=== PATIENT | male | born 1995 | race Caucasian/White ===

== ENCOUNTER 2017-02-07 18:17 | Emergency (ER) | payer SELFPAY ==
[~2017-02-07] VITALS: Ht 152.4 cm; Wt 63.5 kg
[~2017-02-07 18:17] MED LIST: 'PARAFON FORTE500 M1 PO; AMOXICILLIN500 MG PO; ANTIBIOTIC O500 U/GM T; CLARITIN-D 12 H1 TAB PO; CLARITIN10 MG PO; CORTISPORIN SUS10 ML OT; HYDROCODONE BIT1 T11 PO; LOMOTIL 0.025 M1 TA1 PO; MEDROL DOSEPAK4 MG PO; MOTRIN600 MG PO; MOTRIN800 MG PO; NAPROSYN500 MG PO; OMNICEF300 MG PO; PREDNICOT20 MG PO; ROBAXIN750 MG PO; SEPTRA DS 800 M1 TAB PO; TESSALON PERLE200 MG PO; TOBREX OPHTH S2.5 ML OPH; ULTRAM50 MG PO; VIBRAMYCIN100 MG PO; ZITHROMAX Z PA250 MG PO; ZITHROMAX Z-PA250 MG PO; ZITHROMAX250 MG PO; ZOFRAN ODT4 MG SL; ZYRTEC10 MG PO
[2017-02-07 18:26] VITALS: BP 116/60
[2017-02-07 19:35] LABS: BASO % 0.3 % (0.0-1.0); EOS # 0.2 10*3/uL (0.0-0.4); EOS % 2.6 % (1.0-4.0); HEMATOCRIT 40.3 % (42.0-52.0); HEMOGLOBIN 14.1 g/dl (14.0-18.0); LYMPH # 1.3 10*3/uL (1.3-4.4); LYMPH % 14.9 % (27.0-41.0); MEAN CORPUSCULAR HGB 32.2 pg (27.0-31.0); MEAN PLATELET VOLUME 11.2 fl (9.6-12.3); MONO # 0.7 10*3/uL (0.1-1.0); MONO % 7.9 % (3.0-9.0); NEUT # 6.4 10*3/uL (2.3-7.9); PLATELET COUNT AUTOMATED 201 10*3/uL (130-400); RED BLOOD COUNT 4.38 10*6/uL (4.50-5.90); RED CELL DISTRI WIDTH 11.7 % (0-14.5); WHITE BLOOD COUNT 8.7 10*3/uL (4.8-10.8)
[2017-02-07 19:51] LABS: ALKALINE PHOSPHATASE 50 U/L (45-117); BILIRUBIN, TOTAL 0.5 mg/dl (0.2-1.0); BUN 11 mg/dl (7-24); CARBON DIOXIDE 27 mmol/L (21-32); CHLORIDE 104 mmol/L (98-107); EST GLOM FILT AFRICAN AMERICAN > 60 ml/min; GLUCOSE 122 mg/dL (65-99); POTASSIUM 3.7 mmol/L (3.5-5.1); SGOT/AST 16 IU/L (3-35); SGPT/ALT 15 U/L (12-78); SODIUM 139 mmol/L (136-145); TOTAL PROTEIN 7.4 gm/dL (6.4-8.2)
[2017-02-07] MEDS ORDERED: ZITHROMAX250 MG PO (19:58)
== END 2017-02-07 20:20 | disposition home or self-care (01) ==
LOC: ED 18:17
PROVIDERS: Nurse Practitioner Family
DX: J02.9 Acute pharyngitis, unspecified (principal)

== ENCOUNTER 2017-02-24 02:48 | Emergency (ER) | payer SELFPAY ==
[2017-02-24 02:54] VITALS: BP 135/44
[2017-02-24] MEDS ORDERED: ACULAR 3ML 3 ML5 ML OPH (03:36)
[2017-02-24] MEDS ORDERED: CIPROFLOXACIN 110 ML OPH (03:36)
== END 2017-02-24 06:01 | disposition home or self-care (01) ==
LOC: ED 02:48
DX: H16.133 Photokeratitis, bilateral (principal)

== ENCOUNTER 2017-10-17 15:25 | Emergency (ER) | payer SELFPAY ==
[~2017-10-17] VITALS: Ht 165.1 cm; Wt 63.5 kg
[~2017-10-17 15:25] MED LIST changes: +ACULAR 3ML 3 ML5 ML OPH; +CIPROFLOXACIN 110 ML OPH
[2017-10-17 15:28] VITALS: BP 122/65
[2017-10-17] MEDS ORDERED: ALBUTEROL2.5 MG/0.5 INH (16:30)
[2017-10-17] MEDS ORDERED: ZITHROMAX250 MG PO (16:30)
[2017-10-17] MEDS ORDERED: PROAIR HFA8.5 GM INH (16:30)
[2017-10-17] MEDS ORDERED: PREDNISONE10 MG PO (16:30)
== END 2017-10-17 16:38 | disposition home or self-care (01) ==
LOC: ED 15:25
DX: H66.93 Otitis media, unspecified, bilateral (principal); J06.9 Acute upper respiratory infection, unspecified; R06.2 Wheezing

== ENCOUNTER 2018-05-11 02:31 | Emergency (ER) | payer SELFPAY ==
[~2018-05-11] VITALS: Ht 165.1 cm; Wt 6.4 kg
[~2018-05-11 02:31] MED LIST changes: +ALBUTEROL2.5 MG/0.5 INH; +FLONASE ALLERG9.9 ML NAS; +PREDNISONE10 MG PO; +PROAIR HFA8.5 GM INH
[2018-05-11 02:32] VITALS: BP 120/63
== END 2018-05-11 03:07 | disposition home or self-care (01) ==
LOC: ED 02:31
DX: S05.01XA Injury of conjunctiva and corneal abrasion without foreign body, right eye, initial encounter (principal); S05.02XA Injury of conjunctiva and corneal abrasion without foreign body, left eye, initial encounter; H16.133 Photokeratitis, bilateral; Z79.899 Other long term (current) drug therapy; W89.8XXA Exposure to other man-made visible and ultraviolet light, initial encounter; Y93.89 Activity, other specified; Y92.69 Other specified industrial and construction area as the place of occurrence of the external cause; Y99.8 Other external cause status

== ENCOUNTER 2018-06-07 23:42 | Emergency (ER) | payer SELFPAY ==
[~2018-06-07] VITALS: Ht 167.6 cm; Wt 59.0 kg
[2018-06-07 23:43] VITALS: BP 110/42
== END 2018-06-08 00:31 | disposition home or self-care (01) ==
LOC: ED 23:42
DX: H16.133 Photokeratitis, bilateral (principal); F17.200 Nicotine dependence, unspecified, uncomplicated

== ENCOUNTER 2018-12-07 23:01 | Emergency (ER) | payer OTHER ==
[~2018-12-07] VITALS: Wt 59.0 kg
[~2018-12-07 23:01] MED LIST changes: +ACULAR 0.5%3 ML OPH; +CEPHALEXIN500 M1 PO
[2018-12-07 23:04] VITALS: BP 100/47
== END 2018-12-08 00:36 | disposition home or self-care (01) ==
LOC: ED 23:01
DX: H16.133 Photokeratitis, bilateral (principal)

== ENCOUNTER 2019-08-27 11:00 | Emergency (ER) | payer SELFPAY ==
[~2019-08-27] VITALS: Ht 165.1 cm; Wt 59.0 kg
[2019-08-27 11:06] VITALS: BP 104/61
[2019-08-27 11:32] LABS: BASO % 0.2 % (0.0-1.0); EOS % 0.1 % (1.0-4.0); HEMATOCRIT 43.8 % (42.0-52.0); HEMOGLOBIN 14.7 g/dl (14.0-18.0); LYMPH # 0.3 10*3/uL (1.3-4.4); LYMPH % 3.5 % (27.0-41.0); MEAN CELL VOLUME 94.4 fl (80.0-94.0); MEAN CORPUSCULAR HGB 31.7 pg (27.0-31.0); MEAN CORPUSCULAR HGB CONC 33.6 g/dl (33.0-37.0); MEAN PLATELET VOLUME 11.4 fl (9.6-12.3); MONO # 0.6 10*3/uL (0.1-1.0); MONO % 7.4 % (3.0-9.0); NEUT # 7.4 10*3/uL (2.3-7.9); NEUT % 88.6 % (47.0-73.0); PLATELET COUNT AUTOMATED 180 10*3/uL (130-400); RED BLOOD COUNT 4.64 10*6/uL (4.50-5.90); RED CELL DISTRI WIDTH 12.2 % (0-14.5); WHITE BLOOD COUNT 8.3 10*3/uL (4.8-10.8)
[2019-08-27 11:47] LABS: ALBUMIN 4.6 gm/dl (3.1-4.5); ALKALINE PHOSPHATASE 57 U/L (45-117); BUN 10 mg/dl (7-24); CHLORIDE 103 mmol/L (98-107); CREATININE 1.31 mg/dL (0.70-1.30); POTASSIUM 3.6 mmol/L (3.5-5.1); SGOT/AST 18 IU/L (3-35); SGPT/ALT 26 U/L (12-78); SODIUM 135 mmol/L (136-145); TOTAL PROTEIN 8.2 gm/dL (6.4-8.2)
[2019-08-27 12:49] LABS: BILIRUBIN NEGATIVE (NEGATIVE); BLOOD NEGATIVE (NEGATIVE); CLARITY SL CLOUDY (CLEAR); COLOR YELLOW (YELLOW); GLUCOSE NEGATIVE (NEGATIVE); KETONE NEGATIVE (NEGATIVE); SPECIFIC GRAVITY 1.015 (1.005-1.030)
[2019-08-27 12:50] LABS: BACTERIA TRACE; EPITHELIAL CELLS 0-2; LEUKO ESTERASE NEGATIVE (NEGATIVE); MUCOUS 1+; NITRITE NEGATIVE (NEGATIVE); UROBILINOGEN 0.2 E.U./dl (0.2-1.0)
[2019-08-27] MEDS ORDERED: ROBITUSSIN DM 101 OZ PO (13:08)
[2019-08-27] MEDS ORDERED: TAMIFLU 75MG CA75 MG PO (13:19)
== END 2019-08-27 13:13 | disposition home or self-care (01) ==
LOC: ED 11:00
PROVIDERS: Nurse Practitioner Family
DX: J10.1 Influenza due to other identified influenza virus with other respiratory manifestations (principal); J45.909 Unspecified asthma, uncomplicated; Z79.2 Long term (current) use of antibiotics; Z79.899 Other long term (current) drug therapy

== ENCOUNTER 2019-11-04 14:36 | Emergency (ER) | payer SELFPAY ==
[~2019-11-04] VITALS: Ht 162.5 cm; Wt 56.7 kg
[~2019-11-04 14:36] MED LIST changes: +ROBITUSSIN DM 101 OZ PO; +TAMIFLU 75MG CA75 MG PO
[2019-11-04 16:12] LABS: BASO # 0.1 10*3/uL (0.0-0.1); BASO % 0.4 % (0.0-1.0); EOS # 0.6 10*3/uL (0.0-0.4); EOS % 3.5 % (1.0-4.0); HEMATOCRIT 44.4 % (42.0-52.0); LYMPH # 2.8 10*3/uL (1.3-4.4); LYMPH % 15.9 % (27.0-41.0); MEAN CELL VOLUME 94.7 fl (80.0-94.0); MEAN CORPUSCULAR HGB 31.6 pg (27.0-31.0); MEAN CORPUSCULAR HGB CONC 33.3 g/dl (33.0-37.0); MEAN PLATELET VOLUME 11.1 fl (9.6-12.3); MONO # 1.4 10*3/uL (0.1-1.0); MONO % 7.6 % (3.0-9.0); NEUT # 12.8 10*3/uL (2.3-7.9); PLATELET COUNT AUTOMATED 337 10*3/uL (130-400); RED BLOOD COUNT 4.69 10*6/uL (4.50-5.90); RED CELL DISTRI WIDTH 12.7 % (0-14.5); WHITE BLOOD COUNT 17.8 10*3/uL (4.8-10.8)
[2019-11-04 16:28] LABS: ALBUMIN 4.2 gm/dl (3.1-4.5); ALKALINE PHOSPHATASE 57 U/L (45-117); BUN 8 mg/dl (7-24); CHLORIDE 107 mmol/L (98-107); CREATININE 1.01 mg/dL (0.70-1.30); POTASSIUM 3.3 mmol/L (3.5-5.1); SGOT/AST 15 IU/L (3-35); SGPT/ALT 24 U/L (12-78); SODIUM 140 mmol/L (136-145); TOTAL PROTEIN 7.6 gm/dL (6.4-8.2)
[2019-11-04 18:03] LABS: URINE AMPHETAMINES < 1000 (1000ng/ml); URINE BARBITURATES < 200 (200ng/ml); URINE BENZODIAZEPINES < 200 (200ng/ml); URINE CANNABINOIDS (THC) > 50 (50ng/ml); URINE COCAINE > 300 (300ng/ml); URINE METHADONE < 300 (300ng/ml); URINE OPIATES < 300 (300ng/ml)
[2019-11-04 18:06] LABS: URINE PHENCYCLIDINE < 25 (25ng/ml)
[2019-11-04 18:30] VITALS: BP 122/78
== END 2019-11-04 18:36 | disposition home or self-care (01) ==
LOC: ED 14:36
PROVIDERS: Emergency Medicine
DX: F14.90 Cocaine use, unspecified, uncomplicated (principal); R11.0 Nausea; J45.909 Unspecified asthma, uncomplicated; Z79.899 Other long term (current) drug therapy; Z79.2 Long term (current) use of antibiotics; Z96.22 Myringotomy tube(s) status

== ENCOUNTER 2020-09-09 04:36 | Emergency (ER) | payer SELFPAY ==
[2020-09-09 04:41] VITALS: BP 141/69
[2020-09-09] MEDS ORDERED: AMOXICILLIN500 M2 PO (05:22)
== END 2020-09-09 05:33 | disposition home or self-care (01) ==
LOC: ED 04:36
DX: J03.90 Acute tonsillitis, unspecified (principal); J45.909 Unspecified asthma, uncomplicated; Z96.22 Myringotomy tube(s) status

== ENCOUNTER 2022-08-23 15:38 | Emergency (ER) | payer OTHER ==
[~2022-08-23] VITALS: Ht 175.2 cm; Wt 68.0 kg
[~2022-08-23 15:38] MED LIST changes: +AMOXICILLIN500 M2 PO
[2022-08-23 15:44] VITALS: BP 120/75
[2022-08-23] MEDS ORDERED: CLINDAMYCIN HC300 MG PO (15:52)
[2022-08-23] MEDS ORDERED: IBU800 M2 PO (15:52)
== END 2022-08-23 15:59 | disposition home or self-care (01) ==
LOC: ED 15:38
DX: K08.89 Other specified disorders of teeth and supporting structures (principal)

== ENCOUNTER 2022-08-25 14:01 | Emergency (ER) | payer OTHER ==
[~2022-08-25] VITALS: Ht 165.1 cm; Wt 59.0 kg
[~2022-08-25 14:01] MED LIST changes: +CLINDAMYCIN HC300 MG PO; +IBU800 M2 PO
[2022-08-25 14:14] VITALS: BP 118/70
[2022-08-25] MEDS ORDERED: HYDROCODONE-AC1 EACH PO ×2 (14:39→14:41)
== END 2022-08-25 14:48 | disposition home or self-care (01) ==
LOC: ED 14:01
DX: K08.89 Other specified disorders of teeth and supporting structures (principal); J45.909 Unspecified asthma, uncomplicated; Z98.890 Other specified postprocedural states

== ENCOUNTER 2023-04-14 21:43 | Emergency (ER) | payer OTHER ==
[~2023-04-14] VITALS: Ht 172.7 cm; Wt 81.6 kg
[~2023-04-14 21:43] MED LIST changes: +HYDROCODONE-AC1 EACH PO
[2023-04-14 21:48] VITALS: BP 120/48
[2023-04-14] MEDS ORDERED: AMOX-CLAV 875-1 EACH PO (23:50)
== END 2023-04-15 00:03 ==
LOC: ED 21:43
DX: S81.832A Puncture wound without foreign body, left lower leg, initial encounter (principal); S81.831A Puncture wound without foreign body, right lower leg, initial encounter; S40.011A Contusion of right shoulder, initial encounter; J45.909 Unspecified asthma, uncomplicated; Z98.890 Other specified postprocedural states; W54.0XXA Bitten by dog, initial encounter; X58.XXXA Exposure to other specified factors, initial encounter; Y93.89 Activity, other specified; Y92.89 Other specified places as the place of occurrence of the external cause; Y99.8 Other external cause status